=== PATIENT | male | born 1955 | race Caucasian/White ===

== ENCOUNTER 2019-02-01 14:25 | Emergency (ER) | payer OTHER ==
[2019-02-01 14:35] VITALS: BMI 31.2
--- NOTE | 2019-02-01 14:36 | PDOC ---
Rapid Medical Evaluation Time Seen by Provider: 02/01/19 14:30 Medical Evaluation: Allergies Allergy/AdvReac Type Severity Reaction Status Date / Time No Known Allergies Allergy Verified 09/05/14 18:03 02/01/19 14:31 Pt presents for difficulty walking for 9 days. Denies falling, recent travel, smoking history. Pt drinks approx. 7-8 drinks per day. Drank one beer today. Exam: R leg is with 4+ pitting edema. Orders: US, labs Pt to proceed to the ER for further evaluation Discharge Disposition - Diagnosis Leg swelling - Referrals - Patient Instructions - Post Discharge Activity
--- NOTE | 2019-02-01 15:16 | PDOC ---
History of Present Illness - General Chief Complaint: Edema Stated Complaint: LEG SWELLING Time Seen by Provider: 02/01/19 14:30 - History of Present Illness Initial Comments: 02/01/19 16:01 The patient is a 64 year old male with a history of HTN, DM, Alcohol abuse who presents for evaluation of right lower extremity pain and swelling. The patient reports a 9-10 day history of difficulty walking secondary to right lower extremity pain and worsening swelling prompting his presentation to the ED for further evaluation. The patient denies any history of DVT and otherwise denies any recent long travel, headache, fevers, chills, SOB, chest pain, nausea , vomiting, abdominal pain, or changes with urination or bowel movements. Past History - Past Medical History Allergies/Adverse Reactions: Allergies Allergy/AdvReac Type Severity Reaction Status Date / Time No Known Allergies Allergy Verified 02/01/19 14:34 Home Medications: Ambulatory Orders Atorvastatin Ca [Lipitor] 20 mg PO HS 07/26/14 Albuterol Sulfate Inhaler - [Ventolin HFA Inhaler -] 2 inh PO Q4H PRN #1 cartridge 09/09/14 Aspirin Coated [Ecotrin -] 81 mg PO DAILY #30 tablet.ec 09/09/14 Insulin (Novolog) [Novolog Flexpen -] 0 units SQ BIDAC pen 09/09/14 Losartan Potassium 50 mg PO DAILY #30 tablet 09/09/14 Thiamine HCl [Vitamin B1 -] 100 mg PO HS #30 tablet 09/09/14 metFORMIN HCL [Glucophage -] 500 mg PO BIDAC #60 tablet 09/09/14 Anemia: No Asthma: Yes Cancer: No Cardiac Disorders: No CVA: No COPD: No CHF: No Dementia: No Diabetes: Yes (metformin ) GI Disorders: No Disorders: No HTN: Yes (no meds reported) Hypercholesterolemia: No Kidney Stones: No Liver Disease: No Seizures: No (blackouts alcohol related last 1 month ago) Thyroid Disease: No - Surgical History Abdominal Surgery: Yes (umbilical hernia repair ) Appendectomy: No Cardiac Surgery: No Cholecystectomy: No Lung Surgery: No Neurologic Surgery: No Orthopedic Surgery: No - Reproductive History Testicular Surgery: No - Psycho Social/Smoking Cessation Hx Smoking History: Never smoked Have you smoked in the past 12 months: No Number of Cigarettes Smoked Daily: 20 Cigars Per Day: 0 Information on smoking cessation initiated: No 'Breaking Loose' booklet given: 09/05/14 Hx Alcohol Use: Yes (7 BEERS A DAY) Drug/Substance Use Hx: No Substance Use Type: Cocaine, Marijuana Hx Substance Use Treatment: Yes Review of Systems - Review of Systems Comments:: 02/01/19 16:03 Constitutional: No fevers, chills, fatigue, malaise HEENT: No Rhinorrhea, nasal congestion, visual changes Cardiovascular: No chest pain, syncope, palpitations, lightheadedness Respiratory: No Cough, SOB, Hemoptysis, Gastrointestinal: No Abdominal pain, Nausea, Vomiting, Constipation, Diarrhea, Melena Genitourinary: No Dysuria, Frequency, Urgency, Hesitancy, Hematuria, Flank pain Musculoskeletal: Right lower extremity pain and swelling. No Myalgia, arthralgia Skin: No rashes, itching, bruising, pallor Neurologic: No Headache, Dizziness, Numbness, Weakness, or Tingling Psychiatric: No Hallucinations. No SI or HI *Physical Exam - Vital Signs Last Vital Signs Temp Pulse Resp BP Pulse Ox 97.8 F 80 20 144/67 99 02/01/19 14:30 02/01/19 14:30 02/01/19 14:30 02/01/19 14:30 02/01/19 14:30 - Physical Exam 02/01/19 16:03 General Appearance: Nourished. No Apparent Distress HEENT: No Pharyngeal Erythema, Tonsillar Exudate, Tonsillar Erythema Neck: No Cervical Lymphadenopathy Respiratory/Chest: Lungs Clear, Normal Breath Sounds. No Crackles, Rales, Rhonchi, Wheezing Cardiovascular: Regular Rhythm, Regular Rate. No Murmur, Gallops, Rubs Gastrointestinal/Abdominal: Normal Bowel Sounds, Soft. No Guarding, Rebound, Tenderness Musculoskeletal: No CVA Tenderness Extremity: 4+ edema to the right lower extremity with tenderness to palpation. Normal Capillary Refill Integumentary: Normal Color, Dry, Warm Neurologic: Fully Oriented, Alert, Normal Mood/Affect, Normal Response, ED Treatment Course - LABORATORY CBC & Chemistry Diagram: 02/01/19 15:12 02/01/19 15:12 Medical Decision Making - Medical Decision Making 02/01/19 16:04 The patient is a 64 year old male with a history of HTN, DM, Alcohol abuse who presents for evaluation of right lower extremity pain and swelling. Given the patient's history and physical exam, we will obtain a cbc, cmp, coags, dvt US to evaluate further. We will continue to monitor and reassess while here in the ED. 02/01/19 17:02 CBC, cmp were unremarkable. DVT US demonstrated no evidence of DVT as read by our radiologist. We will treat with a dose of lasix here in the Ed. We are comfortable discharging the patient home in stable condition. Patient made aware of impression and plan, return precautions discussed including but not limited to worsening pain or symptoms, fevers, or signs of infection, chest pain , respiratory distress, inability to tolerate oral intake, dehydration, syncope , or neurologic changes. The patient is to follow up with PMD as recommended within 1 week, follow up information provided and the patient will call for an appointment. The patient is to take medications as instructed for duration of time and continue with supportive care, avoid triggers and precipitants. Patient is safe for outpatient follow-up. Discharge - Discharge Information Problems reviewed: Yes Clinical Impression/Diagnosis: Leg swelling Condition: Stable Disposition: HOME - Follow up/Referral Referrals: ON STAFF,NOT [Primary Care Provider] - - Patient Discharge Instructions Patient Printed Discharge Instructions: DI for Peripheral Edema, Unilateral Additional Instructions: 1) Please follow-up with your primary care doctor in the next 2-3 days. Please call tomorrow to schedule a follow up appointment. If you cannot follow up with your doctor within 1 week please return to the Emergency Department for any urgent issues. 2) Your laboratory / imaging results were normal here in the ER. 3) If you have any worsening of symptoms or any other concerns, please return to the ER immediately. Return if worsening symptoms including fevers, headache, vomiting, visual or hearing disturbances, abdominal pain, chest pain, shortness of breath, syncope, dehydration, inability to take things by mouth/vomiting, altered mental status, or worsening concerning symptoms. 4) Please continue taking your home medications as directed. Side effects may include upset stomach, abdominal pain, vomiting, or diarrhea. Do not drink alcohol with your medications. - Post Discharge Activity
[2019-02-01 15:55] LABS: BASO % 0.5 % (0-2.0); HEMATOCRIT 30.4 % (35.4-49); LYMPH % 17.5 % (8-40); MCH 27.8 pg (25.7-33.7); MCHC 32.9 g/dl (32.0-35.9); MEAN CELL VOLUME 84.3 fl (80-96); PLATELET COUNT 124 K/MM3 (134-434); RDW 15.4 % (11.9-15.9); WHITE BLOOD COUNT 4.8 K/mm3 (4.0-10.0)
[2019-02-01 16:19] LABS: INR 1.07 (0.83-1.09); PROTHROMBIN TIME (PATIENT) 12.6 SEC (9.7-13.0)
[2019-02-01 16:25] LABS: ALBUMIN 2.6 g/dl (3.4-5.0); BILIRUBIN,TOTAL 1.3 mg/dL (0.2-1); BLOOD UREA NITROGEN 10.5 mg/dL (7-18); CALCIUM 8.5 mg/dL (8.5-10.1); CREATININE 0.7 mg/dL (0.55-1.3); POTASSIUM 3.8 mmol/L (3.5-5.1); TOT PROT 8.7 g/dl (6.4-8.2)
--- NOTE | 2019-02-01 16:45 | PDOC ---
Documentation entered by Jess Mitchell SCRIBE, acting as scribe for Steven Marquez MD. Steven Marqeuz MD: This documentation has been prepared by the Stephen fontanez Xhesika, SCRIBE, under my direction and personally reviewed by me in its entirety. I confirm that the documentation accurately reflects all work, treatment, procedures, and medical decision making performed by me. Attending Attestation - Resident Resident Name: Addi Mcrae - ED Attending Attestation I have performed the following: I have examined & evaluated the patient, The case was reviewed & discussed with the resident, I agree w/resident's findings & plan, Exceptions are as noted - HPI HPI: 02/01/19 16:02 The patient is a 64 year old male with a significant PMH of DM, HTN, and ETOH/ cannabis/cocaine abuse who presents to the emergency department for 10 days of RLE swelling and pain associated with difficulty ambulating. The patient reports daily drinking (approx.7-8 drinks per day) and had one beer today. The patient denies trauma, warmth to the leg, fever/chills, chest pain, shortness of breath, headache and dizziness. Denies cough, nausea, vomiting, diarrhea and constipation. Denies dysuria, frequency, urgency and hematuria. Allergies: NKDA - Physicial Exam PE: 02/01/19 16:03 GENERAL: The patient is awake, alert, and fully oriented, Nontoxic - in no acute distress. NECK: Normal range of motion, supple without lymphadenopathy, JVD, or masses. LUNGS: Breath sounds equal, clear to auscultation bilaterally. No wheezes, no crackles, no rales. HEART: Regular rate and rhythm, normal S1 and S2 without murmur, rub or gallop. ABDOMEN: Soft, nontender, normoactive bowel sounds. No guarding, no rebound. No masses. EXTREMITIES: b/l 3+ pitting edema, R>L, mild anterior erythema without warmth, induration, tenderness to palpation, mildly tender on lateral aspect of calf. no focal bony tenderness. NEUROLOGICAL: No facial asymmetry, Normal speech, normal gait. PSYCH: Normal mood, normal affect. SKIN: Warm, Dry, normal turgor, no rashes or lesions noted. - Medical Decision Making 12/09/19 17:00 pt with chronic le gswelling, but worsened the past 10 days. no trauma/falls, fever/chills. pt notes he is homeless and is on his feet alot, when he has a chance to elevate his legs, the swelling does improve. pt noticed to be hypalbumin - likely from chronic etoh - enoucraged pt to eat more protiens will give pt a dose of laxis, but recommend elevation pt does have a PMD in the [facility] will have pt fu with them next week
[2019-02-01] MEDS ORDERED: FUROSEMIDE 40 MG/4 ML INJECTABLE VIAL IVPUSH ONE (16:57)
[2019-02-01 17:18] VITALS: BP 134/76; PULSE 78; TEMP 98
[2019-02-01] MEDS ORDERED: FUROSEMIDE 40 MG/4 ML INJECTABLE VIAL ONE (17:20)
[2019-02-01 17:34] LABS: PLATELET ESTIMATE SLT DECREASE
== END 2019-02-01 17:25 | disposition home or self-care (01) ==
LOC: JER 14:25
PROC: 3E033GC Introduction of Other Therapeutic Substance into Peripheral Vein, Percutaneous Approach (ICD-10-PCS; principal; 2019-02-01)
DX: R60.0 Localized edema (principal); I10 Essential (primary) hypertension; E11.9 Type 2 diabetes mellitus without complications; Z79.84 Long term (current) use of oral hypoglycemic drugs; F10.10 Alcohol abuse, uncomplicated
CPT/HCPCS: 36415; 80053; 85025; 85610; 93971-TC; 96374; 99282-25

== ENCOUNTER 2019-02-01 18:44 | Inpatient (IN) | payer OTHER ==
[2019-02-01 19:22] VITALS: BMI 26.7
--- NOTE | 2019-02-01 21:31 | HP ---
CIWA Score Nausea/Vomitin Muscle Tremors: 2 Anxiety: 2 Agitation: 0-Normal Activity Paroxysmal Sweats: 1-Minimal Palms Moist Orientation: 2-Disoriented Date<2 days Tacttile Disturbances: 0-None Auditory Disturbances: 0-None Visual Disturbances: 2-Mild Sensitivity Headache: 3-Moderate CIWA-Ar Total Score: 14 - Admission Criteria OASAS Guidelines: Admission for Medically Managed Detox: Requires at least one of the followin. CIWA greater than 12 2. Seizures within the past 24 hours 3. Delirium tremens within the past 24 hours 4. Hallucinations within the past 24 hours 5. Acute intervention needed for co occurring medical disorder 6. Acute intervention needed for co occurring psychiatric disorder 7. Severe withdrawal that cannot be handled at a lower level of care (continued vomiting, continued diarrhea, abnormal vital signs) requiring intravenous medication and/or fluids 8. Admitting History and Physical - Smoking History Smoking history: Never smoked Have you smoked in the past 12 months: No Aproximately how many cigarettes per day: 20 - Alcohol/Substance Use Hx Alcohol Use: Yes (7 BEERS A DAY) Admission ROS [facility] Allergies/Adverse Reactions: Allergies Allergy/AdvReac Type Severity Reaction Status Date / Time No Known Allergies Allergy Verified 02/01/19 19:01 History of Present Illness: pt here requesting detox from etoh use , reports 1 case beer and sometime 1/ 5 l liquor , latest use this morning , reports tremors if not drinking , denies blackouts, + falls while intoxicated, most recently 5 mo ago fell in the street , slip and fall on wet leaves w/ [facility] denies frx , has had leg swelling RIGHT since . went to ED [facility] today for R LE swelling , No DVT per d/c paperwork , BW done . Denies seizures . first age of use 17 cocaine - 100 $ /day via inhalation x 8 years heroin : 1 bundle every weekend . tobacco - denies cannabis - occasional PMHX : DM , HTN PSHX : r eye injury w/ blindness , umbilical hernia PSych : denies Exam Limitations: Clinical Condition - Ebola screening Have you traveled outside of the country in the last 21 days: No Have you had contact with anyone from an Ebola affected area: No - Review of Systems Constitutional: Loss of Appetite EENT: reports: Other (R eye blind) Respiratory: reports: SOB with Exertion (intermittent) Cardiac: reports: Chest Tightness (intermittent) GI: reports: Constipated, Poor Appetite : reports: Other (hesitancy) Musculoskeletal: reports: Back Pain (chronic) Patient History - Patient Medical History Hx Anemia: No Hx Asthma: Yes Hx Chronic Obstructive Pulmonary Disease (COPD): No Hx Cancer: No Hx Cardiac Disorders: No Hx Congestive Heart Failure: No Hx Hypertension: Yes (no meds reported) Hx Hypercholesterolemia: No Hx Pacemaker: No HX Cerebrovascular Accident: No Hx Seizures: No (blackouts alcohol related last 1 month ago) Hx Dementia: No Hx Diabetes: Yes (metformin ) Hx Gastrointestinal Disorders: No Hx Liver Disease: No Hx Genitourinary Disorders: No Hx Sexually Transmitted Disorders: No Hx Renal Disease (ESRD): No Hx Thyroid Disease: No Hx Human Immunodeficiency Virus (HIV): No (negative 8 m ago ) Hx Hepatitis C: Yes Hx Depression: Yes (not medciated ) Hx Suicide Attempt: No Hx Bipolar Disorder: No Hx Schizophrenia: No - Patient Surgical History Past Surgical History: Yes Hx Neurologic Surgery: No Hx Cataract Extraction: No Hx Cardiac Surgery: No Hx Lung Surgery: No Hx Breast Surgery: No Hx Breast Biopsy: No Hx Abdominal Surgery: Yes (umbilical hernia repair ) Hx Appendectomy: No Hx Cholecystectomy: No Hx Genitourinary Surgery: No Hx Section: No Hx Orthopedic Surgery: No Hx Hysterectomy: No Other Surgical History: rt eye surgery while in [facility] ? cause / low back pain hx Anesthesia Reaction: No - PPD History Date: 07/27/14 - Smoking Cessation Smoking history: Never smoked Have you smoked in the past 12 months: No Aproximately how many cigarettes per day: 20 Cigars Per Day: 0 Hx Chewing Tobacco Use: No - Substances abused Alcohol Substance route: Oral Frequency: Daily Amount used: 15 12OZ CANS OF BEERS Age of first use: 11 Date of last use: 02/01/19 Heroin Substance route: Inhalation Frequency: Daily Amount used: 10 BAGS Age of first use: 17 Date of last use: 01/23/19 Cocaine Substance route: Inhalation Frequency: Daily Amount used: $100 Age of first use: 18 Date of last use: 01/30/19 Marijuana/Hashish Substance route: Smoking Frequency: Daily Amount used: $25 Age of first use: 13 Date of last use: 12/02/19 Admission Physical Exam BHS - Vital Signs Vital Signs: Vital Signs - 24 hr 02/01/19 02/01/19 18:58 19:21 Temperature 98.2 F 98.2 F Pulse Rate 92 H 92 H Respiratory 18 18 Rate Blood Pressure 146/79 146/79 Breathalyzer - Breathalyzer Breathalyzer: 0 Urine Drug Screen - Test Device Lot number: [id number] Expiration date: 09/23/20 - Control Is test valid?: Yes - Results Drug screen NEGATIVE: No Urine drug screen results: CLAUDIA-Cocaine
--- NOTE | 2019-02-01 21:43 | HP ---
CIWA Score Nausea/Vomitin-Mild Nausea/No Vomiting Muscle Tremors: 1-None Visible, but [place] Anxiety: 2 Agitation: 0-Normal Activity Paroxysmal Sweats: 1-Minimal Palms Moist Orientation: 2-Disoriented Date<2 days Tacttile Disturbances: 0-None Auditory Disturbances: 0-None Visual Disturbances: 2-Mild Sensitivity Headache: 3-Moderate CIWA-Ar Total Score: 12 - Admission Criteria OASAS Guidelines: Admission for Medically Managed Detox: Requires at least one of the followin. CIWA greater than 12 2. Seizures within the past 24 hours 3. Delirium tremens within the past 24 hours 4. Hallucinations within the past 24 hours 5. Acute intervention needed for co occurring medical disorder 6. Acute intervention needed for co occurring psychiatric disorder 7. Severe withdrawal that cannot be handled at a lower level of care (continued vomiting, continued diarrhea, abnormal vital signs) requiring intravenous medication and/or fluids 8. Admitting History and Physical - Smoking History Smoking history: Never smoked Have you smoked in the past 12 months: No Aproximately how many cigarettes per day: 20 Admission ROS [facility] - HPI Allergies/Adverse Reactions: Allergies Allergy/AdvReac Type Severity Reaction Status Date / Time No Known Allergies Allergy Verified 02/01/19 19:01 History of Present Illness: pt here requesting detox from etoh use , reports 1 case and sometimes 1/2 liter liquor , reports tremors if not drinking , denies blackouts or seizures , latest use this morning . pt was in ED @ [facility] today for c/o R LE swelling , per d/c paperwork no DVT . cocaine : 100 $ /day heroin : weeneds only , claims 1 bundle cannabis ; occasional tobacco - denies . PMHX : DM ,HTN PSHX : r eye injury , unmbilical hernia Exam Limitations: Clinical Condition - Ebola screening Have you traveled outside of the country in the last 21 days: No Have you had contact with anyone from an Ebola affected area: No - Review of Systems Constitutional: Loss of Appetite EENT: reports: See HPI Respiratory: reports: SOB with Exertion Cardiac: reports: Chest Tightness (at times) GI: reports: Constipated, Poor Appetite : reports: Other (hesitancy) Musculoskeletal: reports: Back Pain (chronic) Integumentary: reports: No Symptoms Reported Neuro: reports: See HPI, Headache Endocrine: reports: See HPI Psychiatric: reports: Orientated x3, Anxious Patient History - Patient Medical History Hx Anemia: No Hx Asthma: Yes Hx Chronic Obstructive Pulmonary Disease (COPD): No Hx Cancer: No Hx Cardiac Disorders: No Hx Congestive Heart Failure: No Hx Hypertension: Yes (no meds reported) Hx Hypercholesterolemia: No Hx Pacemaker: No HX Cerebrovascular Accident: No Hx Seizures: No (blackouts alcohol related last 1 month ago) Hx Dementia: No Hx Diabetes: Yes (metformin ) Hx Gastrointestinal Disorders: No Hx Liver Disease: No Hx Genitourinary Disorders: No Hx Sexually Transmitted Disorders: No Hx Renal Disease (ESRD): No Hx Thyroid Disease: No Hx Human Immunodeficiency Virus (HIV): No (negative 8 m ago ) Hx Hepatitis C: Yes Hx Depression: Yes (not medciated ) Hx Suicide Attempt: No Hx Bipolar Disorder: No Hx Schizophrenia: No - Patient Surgical History Past Surgical History: Yes Hx Neurologic Surgery: No Hx Cataract Extraction: No Hx Cardiac Surgery: No Hx Lung Surgery: No Hx Breast Surgery: No Hx Breast Biopsy: No Hx Abdominal Surgery: Yes (umbilical hernia repair ) Hx Appendectomy: No Hx Cholecystectomy: No Hx Genitourinary Surgery: No Hx Section: No Hx Orthopedic Surgery: No Hx Hysterectomy: No Other Surgical History: [facility] in [facility] ? cause / low back pain hx Anesthesia Reaction: No - PPD History Date: 07/27/14 - Smoking Cessation Smoking history: Never smoked Have you smoked in the past 12 months: No Aproximately how many cigarettes per day: 20 Cigars Per Day: 0 Hx Chewing Tobacco Use: No - Substances abused Alcohol Substance route: Oral Frequency: Daily Amount used: 15 12OZ CANS OF BEERS Age of first use: 11 Date of last use: 02/01/19 Heroin Substance route: Inhalation Frequency: 1-2 times per week Amount used: 10 BAGS Age of first use: 17 Date of last use: 01/23/19 Cocaine Substance route: Inhalation Frequency: Daily Amount used: $100 Age of first use: 18 Date of last use: 01/30/19 Marijuana/Hashish Substance route: Smoking Frequency: 1-3 times last 30 days Amount used: $25 Age of first use: 13 Date of last use: 01/25/19 Admission Physical Exam BHS - Vital Signs Vital Signs: Vital Signs - 24 hr 02/01/19 02/01/19 18:58 19:21 Temperature 98.2 F 98.2 F Pulse Rate 92 H 92 H Respiratory 18 18 Rate Blood Pressure 146/79 146/79 - Physical General Appearance: Yes: Mild Distress, Anxious HEENTM: Yes: Hearing grossly Normal, Normocephalic, Normal Voice, Nasal Congestion, Rhinorrhea, Other (R Eye blind) Respiratory: Yes: Chest Non-Tender, Lungs Clear, No Respiratory Distress, No Accessory Muscle Use Neck: Yes: No masses,lesions,Nodules, Trachea in good position Cardiology: Yes: Regular Rhythm, Regular Rate, S1, S2, Tachycardia Abdominal: Yes: Soft, Tenderness (LUQ w/ deep palpation , no guarding, no rebound) Back: Yes: Normal Inspection Musculoskeletal: Yes: Gait Steady Extremities: Yes: Normal Inspection, Tremors, Swelling (R LE pitting , w erythema to knee) Integumentary: Yes: Warm, Petechiae (right inner thigh) - Diagnostic (1) Alcohol dependence Current Visit: Yes Status: Chronic Qualifiers: Substance use status: in withdrawal (2) Cocaine dependence Current Visit: Yes Status: Chronic Breathalyzer - Breathalyzer Breathalyzer: 0 Urine Drug Screen - Test Device Lot number: [id number] Expiration date: 09/23/20 - Control Is test valid?: Yes - Results Drug screen NEGATIVE: No Urine drug screen results: CLAUDIA-Cocaine Inpatient Rehab Admission - Rehab Decision to Admit Inpatient rehab admission?: No
[2019-02-01] MEDS ORDERED: MAGNESIUM HYDROX 2400MG/30ML ORAL SUSPENSION 30 ML CUP PO PRN (21:53)
[2019-02-01] MEDS ORDERED: MAGNESIUM CITRATE 300 ML BOTTLE PO PRN (21:53)
[2019-02-01] MEDS ORDERED: IBUPROFEN 400 MG TABLET (FP) PO PRN (21:53)
[2019-02-01] MEDS ORDERED: BISMUTH SUBSALICYLATE 524 MG/30 ML UD PO PRN (21:53)
[2019-02-01] MEDS ORDERED: MENTHOL/PHENOL 1 EACH UD MM PRN (21:53)
[2019-02-01] MEDS ORDERED: hydrOXYzine PAMOATE 25 MG CAPSULE (FP) PO PRN (21:53)
[2019-02-01] MEDS ORDERED: MAG HYDROX/AL HYDROX/SIMETH 30 ML UNIT-DOSE CUP PO PRN (21:53)
[2019-02-01] MEDS ORDERED: P-EPHED 60MG/TRIPROLIDI 2.5MG TABLET PO PRN (21:53)
[2019-02-01] MEDS ORDERED: ACETAMINOPHEN 325 MG TABLET (FP) PO PRN (21:53)
[2019-02-01] MEDS ORDERED: diazePAM 5 MG TABLET PO PRN (21:55)
[2019-02-01] MEDS ORDERED: METOPROLOL TARTRATE 25 MG TABLET (FP) PO ONE (21:55)
[2019-02-01] MEDS ORDERED: ALBUTEROL SO4 0.083% IH SOL 2.5 MG/3 ML VIAL.NEB. NEB PRN (21:55)
[2019-02-01] MEDS: THIAMINE HCL 100 MG TABLET (FP) PO SCH (23:14)
[2019-02-01] MEDS: ASPIRIN COATED 81 MG TABLET.EC PO SCH (23:14)
[2019-02-01] MEDS: ATORVASTATIN CA 20 MG TABLET (FP) PO SCH (23:14)
[2019-02-01] MEDS: diazePAM 5 MG TABLET PO SCH (23:14)
[2019-02-02] MEDS: diazePAM 5 MG TABLET PO SCH ×3 (05:59→22:21)
[2019-02-02] MEDS: metFORMIN HCL 500 MG TABLET (FP) PO SCH ×2 (06:00→16:44)
[2019-02-02] MEDS: INSULIN SLIDING SCALE (NOVOLOG) 1 VIAL SQ SCH ×2 (06:02→16:46)
--- NOTE | 2019-02-02 09:08 | EKG ---
Test Reason : Blood Pressure : / mmHG Vent. Rate : 089 BPM Atrial Rate : 089 BPM P-R Int : 120 ms QRS Dur : 100 ms QT Int : 416 ms P-R-T Axes : 040 001 039 degrees QTc Int : 506 ms NORMAL SINUS RHYTHM PROLONGED QT ABNORMAL ECG NO PREVIOUS ECGS AVAILABLE Confirmed by Mike Jose MD ([id number]) on 02/02/2019 9:07:47 AM Referred By: Confirmed By:Mike Jose MD
--- NOTE | 2019-02-02 09:33 | PN ---
S CIWA - CIWA Score Nausea/Vomitin-Mild Nausea/No Vomiting Muscle Tremors: 3 Anxiety: 3 Agitation: 2 Paroxysmal Sweats: 2 Orientation: 0-Oriented Tacttile Disturbances: 1-Very Mild Itch/Numbness (right leg) Auditory Disturbances: 0-None Visual Disturbances: 0-None Headache: 1-Very Mild CIWA-Ar Total Score: 13 BHS Progress Note (SOAP) Subjective: 64 years old male admitted on 02/01/19 for alcohol withdrawal sx management treated with valium detox regimen long history of diabetes hypertension hypercholesterolemia health teaching on dietary and medication compliance right leg edematous "better in the morning" right leg skin cool to touch 1/10 pain with +4 swelling calf mild tender and erythema noted Objective: 02/02/19 09:33 Vital Signs Temperature 98.2 F 02/02/19 09:29 Pulse Rate 79 02/02/19 09:29 Respiratory Rate 18 02/02/19 09:29 Blood Pressure 98/58 L 02/02/19 09:29 O2 Sat by Pulse Oximetry (%) Laboratory Last Values POC Glucometer 160 UNITS (80-120) 02/02/19 06:00 02/02/19 09:37 lab see 02/01/19 ER report Assessment: 02/02/19 09:38 alcohol withdrawal strong recommend the patient return to his primary care provider for possible right leg dvt diagnostic testing Plan: valium detox regimen elevation of the right leg
[2019-02-02] MEDS: ASPIRIN COATED 81 MG TABLET.EC PO SCH (10:20)
[2019-02-02] MEDS: LOSARTAN POTASSIUM 50 MG TABLET (FP) PO SCH (10:20)
[2019-02-02] MEDS: PRENATAL VITAMINS W/ FOLIC ACID TABLET (FP) PO SCH (10:21)
[2019-02-02] MEDS: ACETAMINOPHEN 325 MG TABLET (FP) PO PRN (12:37)
[2019-02-02] MEDS: MINERAL OIL/PETROLAT/WATER TOPICAL CREAM 113 GM JAR TP SCH ×2 (13:16→22:21)
[2019-02-02] MEDS: ATORVASTATIN CA 20 MG TABLET (FP) PO SCH (22:21)
[2019-02-02] MEDS: THIAMINE HCL 100 MG TABLET (FP) PO SCH (22:21)
[2019-02-02] MEDS: MELATONIN 5 MG TABLETS PO PRN (22:22)
[2019-02-03] MEDS: diazePAM 5 MG TABLET PO SCH ×2 (05:36→17:55)
[2019-02-03] MEDS: MINERAL OIL/PETROLAT/WATER TOPICAL CREAM 113 GM JAR TP SCH ×3 (05:36→22:15)
[2019-02-03] MEDS: metFORMIN HCL 500 MG TABLET (FP) PO SCH ×2 (06:20→17:55)
[2019-02-03] MEDS: INSULIN SLIDING SCALE (NOVOLOG) 1 VIAL SQ SCH ×2 (07:05→16:46)
--- NOTE | 2019-02-03 09:37 | PN ---
S CIWA - CIWA Score Nausea/Vomitin-Mild Nausea/No Vomiting Muscle Tremors: 2 Anxiety: 2 Agitation: 1-Slight > Activity Paroxysmal Sweats: 1-Minimal Palms Moist Orientation: 0-Oriented Tacttile Disturbances: 0-None Auditory Disturbances: 0-None Visual Disturbances: 0-None Headache: 1-Very Mild CIWA-Ar Total Score: 8 BHS Progress Note (SOAP) Subjective: 64 years old male admitted on 02/01/19 for alcohol withdrawal sx management treated with valium detox regimen feeling better today less tremor discuss aftercare with staff Objective: 02/03/19 09:36 Vital Signs Temperature 96.2 F L 02/03/19 09:19 Pulse Rate 83 02/03/19 09:19 Respiratory Rate 18 02/03/19 09:19 Blood Pressure 109/65 02/03/19 09:19 O2 Sat by Pulse Oximetry (%) Laboratory Last Values POC Glucometer 119 UNITS (80-120) 02/03/19 05:38 02/03/19 09:36 lab see 02/01/19 ER report Assessment: 02/03/19 09:37 alcohol withdrawal Plan: valium regimen
[2019-02-03] MEDS: ASPIRIN COATED 81 MG TABLET.EC PO SCH (10:16)
[2019-02-03] MEDS: LOSARTAN POTASSIUM 50 MG TABLET (FP) PO SCH (10:16)
[2019-02-03] MEDS: PRENATAL VITAMINS W/ FOLIC ACID TABLET (FP) PO SCH (10:16)
[2019-02-03] MEDS: ACETAMINOPHEN 325 MG TABLET (FP) PO PRN (10:17)
--- NOTE | 2019-02-03 11:52 | EKG ---
Test Reason : Blood Pressure : / mmHG Vent. Rate : 081 BPM Atrial Rate : 081 BPM P-R Int : 142 ms QRS Dur : 100 ms QT Int : 422 ms P-R-T Axes : 051 -13 016 degrees QTc Int : 490 ms NORMAL SINUS RHYTHM PROLONGED QT ABNORMAL ECG WHEN COMPARED WITH ECG OF 02-FEB-2019 06:30, NO SIGNIFICANT CHANGE WAS FOUND Confirmed by NATHAN KRUEGER MD ([id number]) on 02/03/2019 11:51:39 AM Referred By: Confirmed By:NATHAN KRUEGER MD
[2019-02-03 12:25] LABS: RPR REACTIVE 1:1 (NONREACTIVE)
[2019-02-03] MEDS ORDERED: PENICILLIN G BENZATHINE 2,400,000 UNIT/4 ML PFS IM ONE (14:00)
[2019-02-03 14:49] LABS: TREPONEMA ANTIBODY NON REACTIVE (NONREACTIVE)
[2019-02-03] MEDS: THIAMINE HCL 100 MG TABLET (FP) PO SCH (22:13)
[2019-02-03] MEDS: MELATONIN 5 MG TABLETS PO PRN (22:14)
[2019-02-03] MEDS: ATORVASTATIN CA 20 MG TABLET (FP) PO SCH (22:14)
[2019-02-04] MEDS: MINERAL OIL/PETROLAT/WATER TOPICAL CREAM 113 GM JAR TP SCH (05:24)
[2019-02-04] MEDS ORDERED: diazePAM 5 MG TABLET PO ONE (06:00)
[2019-02-04] MEDS: metFORMIN HCL 500 MG TABLET (FP) PO SCH (07:21)
[2019-02-04] MEDS: INSULIN SLIDING SCALE (NOVOLOG) 1 VIAL SQ SCH (07:22)
[2019-02-04 09:37] VITALS: BP 138/74; PULSE 93; TEMP 97.5
[2019-02-04] MEDS: PRENATAL VITAMINS W/ FOLIC ACID TABLET (FP) PO SCH (10:14)
[2019-02-04] MEDS: ASPIRIN COATED 81 MG TABLET.EC PO SCH (10:14)
[2019-02-04] MEDS: LOSARTAN POTASSIUM 50 MG TABLET (FP) PO SCH (10:14)
--- NOTE | 2019-02-04 12:40 | DS ---
[facility] Detox Discharge Summary Admission Date: 02/01/19 Discharge Date: 02/04/19 - History Present History: Alcohol Dependence Additional Comments: 64 years old male admitted on 02/01/19 for alcohol withdrawal sx management treated with valium detox regimen patient tolerated well alert oriented x 3 cardiac s1s2 regular rate rhythm respiratory clear lung bilaterally on auscultation right leg edematous +1 ambulating steady gait denies pain on weight bearing skin warm and dry - Physical Exam Results Vital Signs: Vital Signs Temperature 97.5 F L 02/04/19 09:36 Pulse Rate 93 H 02/04/19 09:36 Respiratory Rate 18 02/04/19 09:36 Blood Pressure 138/74 02/04/19 09:36 O2 Sat by Pulse Oximetry (%) Pertinent Admission Physical Exam Findings: alcohol withdrawal sx Laboratory Last Values POC Glucometer 129 UNITS (80-120) 02/04/19 05:27 RPR Titer Reactive 1:1 (NONREACTIVE) H 02/02/19 07:50 T.pallidum Ab (MHA) Non reactive (NONREACTIVE) 02/02/19 07:50 lab see 02/01/19 ER report - Treatment Hospital Course: Detox Protocol Followed, Detoxed Safely, Responded well, Discharged Condition Good, Rehab Referral Accepted Patient has Accepted a Rehab Referral to: community support approach - Medication Discharge Medications: Ambulatory Orders Atorvastatin Ca [Lipitor] 20 mg PO HS 07/26/14 Albuterol Sulfate Inhaler - [Ventolin HFA Inhaler -] 2 inh PO Q4H PRN #1 cartridge 09/09/14 Aspirin Coated [Ecotrin -] 81 mg PO DAILY #30 tablet.ec 09/09/14 Thiamine HCl [Vitamin B1 -] 100 mg PO HS #30 tablet 09/09/14 metFORMIN HCL [Glucophage -] 500 mg PO BIDAC #60 tablet 09/09/14 Acetaminophen 750 mg PO Q8H PRN 02/01/19 Doxycycline Hyclate 100 mg PO BID 02/01/19 Folic Acid 1 mg PO DAILY 02/01/19 Multivitamin [One-Daily Multi-Vitamin] 1 each PO DAILY 02/01/19 Naproxen 500 mg PO BID PRN 02/01/19 Tamsulosin HCl 0.4 mg PO DAILY 02/01/19 - Diagnosis (1) Syphilis contact, treated Status: Chronic (2) Alcohol dependence Status: Acute Qualifiers: Substance use status: uncomplicated Qualified Code(s): F10.20 - Alcohol dependence, uncomplicated (3) Asthma Status: Chronic Qualifiers: Asthma severity: mild Asthma persistence: intermittent Asthma complication type: with status asthmaticus Qualified Code(s): J45.22 - Mild intermittent asthma with status asthmaticus (4) Blind right eye Status: Chronic Qualifiers: Left eye visual impairment category: left - unspecified impairment Qualified Code(s): H54.40 - Blindness, one eye, unspecified eye (5) Diabetes mellitus Status: Chronic Qualifiers: Diabetes mellitus type: type 2 Diabetes mellitus complication status: with other specified complication (6) Hepatitis C Status: Chronic Qualifiers: Viral hepatitis chronicity: carrier Qualified Code(s): B18.2 - Chronic viral hepatitis C (7) Hypertension Status: Chronic Qualifiers: Hypertension type: essential hypertension Qualified Code(s): I10 - Essential (primary) hypertension - AMA Did Patient Leave Against Medical Advice: No CIWA Score - CIWA Score Nausea/Vomitin-No Nausea/No Vomiting Muscle Tremors: 2 Anxiety: 1-Mildly Anxious Agitation: 1-Slight > Activity Paroxysmal Sweats: No Perspiration Orientation: 0-Oriented Tacttile Disturbances: 0-None Auditory Disturbances: 0-None Visual Disturbances: 0-None Headache: 0-None Present CIWA-Ar Total Score: 4
== END 2019-02-04 10:20 | disposition home or self-care (01) | DRG 773 ==
LOC: YASAS 18:44 → Y3N 22:22
PROVIDERS: ADMIT Allergy & Immunology; ATTEND Allergy & Immunology
PROC: HZ2ZZZZ Detoxification Services for Substance Abuse Treatment (ICD-10-PCS; principal; 2019-02-01)
DX: F10.230 Alcohol dependence with withdrawal, uncomplicated (principal); F11.10 Opioid abuse, uncomplicated; F14.20 Cocaine dependence, uncomplicated; F12.10 Cannabis abuse, uncomplicated; F32.9 Major depressive disorder, single episode, unspecified; I10 Essential (primary) hypertension; J45.22 Mild intermittent asthma with status asthmaticus; E11.9 Type 2 diabetes mellitus without complications; Z79.84 Long term (current) use of oral hypoglycemic drugs; H54.61 Unqualified visual loss, right eye, normal vision left eye; R60.0 Localized edema; B18.2 Chronic viral hepatitis C; Z20.2 Contact with and (suspected) exposure to infections with a predominantly sexual mode of transmission
CPT/HCPCS: 36415; 82962; 86593; 86780; 93005; 93010

== ENCOUNTER 2019-04-19 20:54 | Inpatient (IN) | payer OTHER ==
--- NOTE | 2019-04-20 01:04 | BHS.RME ---
Substance Use & Tx History - Last Treatment Where was last treatment: Detox CIWA Nausea/Vomitin-Mild Nausea/No Vomiting Muscle Tremors: 3 Anxiety: 3 Agitation: 3 Paroxysmal Sweats: 2 Orientation: 2-Disoriented Date<2 days Tacttile Disturbances: 0-None Auditory Disturbances: 0-None Visual Disturbances: 0-None Headache: 0-None Present CIWA-Ar Total Score: 14
--- NOTE | 2019-04-20 01:06 | HP ---
CIWA Score Nausea/Vomitin-Mild Nausea/No Vomiting Muscle Tremors: 3 Anxiety: 3 Agitation: 3 Paroxysmal Sweats: 2 Orientation: 2-Disoriented Date<2 days Tacttile Disturbances: 0-None Auditory Disturbances: 0-None Visual Disturbances: 0-None Headache: 0-None Present CIWA-Ar Total Score: 14 - Admission Criteria OASAS Guidelines: Admission for Medically Managed Detox: Requires at least one of the followin. CIWA greater than 12 2. Seizures within the past 24 hours 3. Delirium tremens within the past 24 hours 4. Hallucinations within the past 24 hours 5. Acute intervention needed for co occurring medical disorder 6. Acute intervention needed for co occurring psychiatric disorder 7. Severe withdrawal that cannot be handled at a lower level of care (continued vomiting, continued diarrhea, abnormal vital signs) requiring intravenous medication and/or fluids 8. Admitting History and Physical - Smoking History Smoking history: Never smoked Have you smoked in the past 12 months: No Aproximately how many cigarettes per day: 20 - Alcohol/Substance Use Hx Alcohol Use: Yes (7 BEERS A DAY) Admission [facility] Chief Complaint: Alcohol withdrawal symptoms Allergies/Adverse Reactions: Allergies Allergy/AdvReac Type Severity Reaction Status Date / Time No Known Allergies Allergy Verified 04/19/19 22:42 History of Present Illness: 64 years old male with a lo9ng history of alcohol dependence is seeking admission to detox. Patient has been to multiple detox and reports insignificant period of sobriety. His last admission to [facility] was for the period 02/01/2019- 2018 and he reports that he relapsed immediately he was discharged. He hs medical [id number] of DM type 2, hypertension, hyperlipidemia, Hep. C, asthma, right eye blindness and bilateral lower extremity swelling. He denies suicide attempt and suicidal ideation at this time. Exam Limitations: No Limitations - Ebola screening Have you traveled outside of the country in the last 21 days: No Have you had contact with anyone from an Ebola affected area: No Do you have a fever: No - Review of Systems Constitutional: No Symptoms Reported, Changes in sleep EENT: reports: No Symptoms Reported, Nose Congestion Respiratory: reports: No Symptoms reported Cardiac: reports: No Symptoms Reported GI: reports: Nausea, Poor Appetite, Poor Fluid Intake, Abdominal cramping : reports: No Symptoms Reported Musculoskeletal: reports: Back Pain, Muscle Pain, Neck Pain Integumentary: reports: Dryness, Flushing Neuro: reports: Tremors Endocrine: reports: No Symptoms Reported Hematology: reports: No Symptoms Reported Psychiatric: reports: No Sypmtoms Reported, Mood/Affect Appropiate, Orientated x3, Anxious, Depressed Other Systems: Reviewed and Negative Patient History - Patient Medical History Hx Anemia: No Hx Asthma: Yes Hx Chronic Obstructive Pulmonary Disease (COPD): No Hx Cancer: No Hx Cardiac Disorders: No Hx Congestive Heart Failure: No Hx Hypertension: Yes (Not on medication) Hx Hypercholesterolemia: Yes (Not on medication) Hx Pacemaker: No HX Cerebrovascular Accident: No Hx Seizures: No (blackouts alcohol related last 1 month ago) Hx Dementia: No Hx Diabetes: Yes (metformin ) Hx Gastrointestinal Disorders: No Hx Liver Disease: No Hx Genitourinary Disorders: No Hx Sexually Transmitted Disorders: No Hx Renal Disease (ESRD): No Hx Thyroid Disease: No Hx Human Immunodeficiency Virus (HIV): No (Negative 2019) Hx Hepatitis C: Yes Hx Depression: Yes (Not on medication) Hx Suicide Attempt: No (Denies suicidal ideation at ths time) Hx Bipolar Disorder: No Hx Schizophrenia: No - Patient Surgical History Past Surgical History: Yes Hx Neurologic Surgery: No Hx Cataract Extraction: No Hx Cardiac Surgery: No Hx Lung Surgery: No Hx Breast Surgery: No Hx Breast Biopsy: No Hx Abdominal Surgery: Yes (umbilical hernia repair ) Hx Appendectomy: No Hx Cholecystectomy: No Hx Genitourinary Surgery: No Hx Section: No Hx Orthopedic Surgery: No Hx Hysterectomy: No Other Surgical History: rt eye surgery while in longterm ? cause / low back pain hx Anesthesia Reaction: No - PPD History Previous Implant?: Yes Documented Results: Negative w/proof Implanted On Prior [facility] Admission?: Yes Date: 02/03/19 PPD to be Administered?: No - Reproductive History Patient is a Female of Child Bearing Age (11 -55 yrs old): No (male) - Smoking Cessation Smoking history: Never smoked Have you smoked in the past 12 months: No Aproximately how many cigarettes per day: 20 Cigars Per Day: 0 Hx Chewing Tobacco Use: No Initiated information on smoking cessation: No - Substance & Tx. History Hx Alcohol Use: Yes Substance Use Type: Alcohol, Cocaine Hx Substance Use Treatment: Yes Admission Physical Exam S - Vital Signs Vital Signs: Vital Signs - 24 hr 04/20/19 04/20/19 00:45 00:51 Temperature 97.6 F Pulse Rate 93 H Respiratory 18 18 Rate Blood Pressure 135/63 - Physical General Appearance: Yes: Moderate Distress, Tremorous, Anxious HEENTM: Yes: Within Normal Limits Respiratory: Yes: Lungs Clear, Normal Breath Sounds, No Respiratory Distress Neck: Yes: Within Normal Limits Breast: Yes: Breast Exam Deferred Cardiology: Yes: Tachycardia Abdominal: Yes: Normal Bowel Sounds, Soft Genitourinary: Yes: Within Normal Limits Back: Yes: Normal Inspection Musculoskeletal: Yes: Back pain Extremities: Yes: Tremors Neurological: Yes: Within Normal Limits Integumentary: Yes: Warm Lymphatic: Yes: Within Normal Limits - Diagnostic (1) Leg swelling Current Visit: No Status: Acute (2) Asthma Current Visit: No Status: Chronic Qualifiers: Asthma severity: mild Asthma persistence: intermittent Asthma complication type: with status asthmaticus Qualified Code(s): J45.22 - Mild intermittent asthma with status asthmaticus (3) Blind right eye Current Visit: No Status: Chronic Qualifiers: Left eye visual impairment category: left - unspecified impairment Qualified Code(s): H54.40 - Blindness, one eye, unspecified eye (4) Cocaine dependence Current Visit: No Status: Chronic (5) Diabetes mellitus Current Visit: No Status: Chronic Qualifiers: Diabetes mellitus type: type 2 Diabetes mellitus complication status: with other specified complication (6) Hepatitis C Current Visit: No Status: Chronic Qualifiers: Viral hepatitis chronicity: carrier Qualified Code(s): B18.2 - Chronic viral hepatitis C (7) Hypertension Current Visit: No Status: Chronic Qualifiers: Hypertension type: essential hypertension Qualified Code(s): I10 - Essential (primary) hypertension Cleared for Admission S - Detox or Rehab [facility] Level of Care: Medically Managed Detox Regimen/Protocol: Librium Claeared for Rehab Admission: No Breathalyzer - Breathalyzer Breathalyzer: 0.091 Urine Drug Screen - Test Device Lot number: [id number] Expiration date: 01/23/21 - Control Is test valid?: Yes - Results Drug screen NEGATIVE: No Urine drug screen results: CLAUDIA-Cocaine Inpatient Rehab Admission - Rehab Decision to Admit Inpatient rehab admission?: No
[2019-04-20] MEDS ORDERED: MAG HYDROX/AL HYDROX/SIMETH 30 ML UNIT-DOSE CUP PO PRN (01:27)
[2019-04-20] MEDS ORDERED: METHOCARBAMOL 500 MG TABLET PO PRN (01:27)
[2019-04-20] MEDS ORDERED: hydrOXYzine PAMOATE 25 MG CAPSULE (FP) PO PRN (01:27)
[2019-04-20] MEDS ORDERED: IBUPROFEN 400 MG TABLET (FP) PO PRN (01:27)
[2019-04-20] MEDS ORDERED: MELATONIN 5 MG TABLETS PO PRN (01:27)
[2019-04-20] MEDS ORDERED: BISMUTH SUBSALICYLATE 524 MG/30 ML UD PO PRN (01:27)
[2019-04-20] MEDS ORDERED: chlordiazePOXIDE HCL 25 MG CAPSULE PO PRN (01:27)
[2019-04-20] MEDS ORDERED: ACETAMINOPHEN 325 MG TABLET (FP) PO PRN ×2 (01:27)
[2019-04-20] MEDS ORDERED: MAGNESIUM CITRATE 300 ML BOTTLE PO PRN (01:27)
[2019-04-20] MEDS ORDERED: MAGNESIUM HYDROX 2400MG/30ML ORAL SUSPENSION 30 ML CUP PO PRN (01:27)
[2019-04-20] MEDS ORDERED: MENTHOL/PHENOL 1 EACH UD MM PRN (01:27)
[2019-04-20] MEDS ORDERED: ALBUTEROL SO4 HFA INHALER IH PRN (01:29)
--- NOTE | 2019-04-20 01:59 | HP ---
CIWA Score Nausea/Vomitin-Mild Nausea/No Vomiting Muscle Tremors: 3 Anxiety: 3 Agitation: 3 Paroxysmal Sweats: 2 Orientation: 2-Disoriented Date<2 days Tacttile Disturbances: 0-None Auditory Disturbances: 0-None Visual Disturbances: 0-None Headache: 0-None Present CIWA-Ar Total Score: 14 - Admission Criteria OASAS Guidelines: Admission for Medically Managed Detox: Requires at least one of the followin. CIWA greater than 12 2. Seizures within the past 24 hours 3. Delirium tremens within the past 24 hours 4. Hallucinations within the past 24 hours 5. Acute intervention needed for co occurring medical disorder 6. Acute intervention needed for co occurring psychiatric disorder 7. Severe withdrawal that cannot be handled at a lower level of care (continued vomiting, continued diarrhea, abnormal vital signs) requiring intravenous medication and/or fluids 8. Admitting History and Physical - Smoking History Smoking history: Never smoked Have you smoked in the past 12 months: No Aproximately how many cigarettes per day: 20 - Alcohol/Substance Use Hx Alcohol Use: Yes Admission [facility] Allergies/Adverse Reactions: Allergies Allergy/AdvReac Type Severity Reaction Status Date / Time No Known Allergies Allergy Verified 04/19/19 22:42 - Ebola screening Have you traveled outside of the country in the last 21 days: No Have you had contact with anyone from an Ebola affected area: No Do you have a fever: No Patient History - Patient Medical History Hx Anemia: No Hx Asthma: Yes Hx Chronic Obstructive Pulmonary Disease (COPD): No Hx Cancer: No Hx Cardiac Disorders: No Hx Congestive Heart Failure: No Hx Hypertension: Yes (Not on medication) Hx Hypercholesterolemia: Yes (Not on medication) Hx Pacemaker: No HX Cerebrovascular Accident: No Hx Seizures: No (blackouts alcohol related last 1 month ago) Hx Dementia: No Hx Diabetes: Yes (metformin ) Hx Gastrointestinal Disorders: No Hx Liver Disease: No Hx Genitourinary Disorders: No Hx Sexually Transmitted Disorders: No Hx Renal Disease (ESRD): No Hx Thyroid Disease: No Hx Human Immunodeficiency Virus (HIV): No (Negative 2019) Hx Hepatitis C: Yes Hx Depression: Yes (Not on medication) Hx Suicide Attempt: No (Denies suicidal ideation at ths time) Hx Bipolar Disorder: No Hx Schizophrenia: No - Patient Surgical History Past Surgical History: Yes Hx Neurologic Surgery: No Hx Cataract Extraction: No Hx Cardiac Surgery: No Hx Lung Surgery: No Hx Breast Surgery: No Hx Breast Biopsy: No Hx Abdominal Surgery: Yes (umbilical hernia repair ) Hx Appendectomy: No Hx Cholecystectomy: No Hx Genitourinary Surgery: No Hx Section: No Hx Orthopedic Surgery: No Hx Hysterectomy: No Other Surgical History: rt eye surgery while in jail ? cause / low back pain hx Anesthesia Reaction: No - PPD History Previous Implant?: Yes Documented Results: Negative w/proof Implanted On Prior [facility] Admission?: Yes Date: 02/03/19 - Smoking Cessation Smoking history: Never smoked Have you smoked in the past 12 months: No Aproximately how many cigarettes per day: 20 Cigars Per Day: 0 Hx Chewing Tobacco Use: No Initiated information on smoking cessation: No - Substances abused Alcohol Substance route: Oral Frequency: Daily Amount used: 24 bottles of beer Age of first use: 16 Date of last use: 04/19/19 Admission Physical Exam BHS - Vital Signs Vital Signs: Vital Signs - 24 hr 04/20/19 04/20/19 00:45 00:51 Temperature 97.6 F Pulse Rate 93 H Respiratory 18 18 Rate Blood Pressure 135/63 - Diagnostic (1) Leg swelling Current Visit: No Status: Acute (2) Asthma Current Visit: No Status: Chronic Qualifiers: Asthma severity: mild Asthma persistence: intermittent Asthma complication type: with status asthmaticus Qualified Code(s): J45.22 - Mild intermittent asthma with status asthmaticus (3) Blind right eye Current Visit: No Status: Chronic Qualifiers: Left eye visual impairment category: left - unspecified impairment Qualified Code(s): H54.40 - Blindness, one eye, unspecified eye (4) Cocaine dependence Current Visit: No Status: Chronic (5) Diabetes mellitus Current Visit: No Status: Chronic Qualifiers: Diabetes mellitus type: type 2 Diabetes mellitus complication status: with other specified complication (6) Hepatitis C Current Visit: No Status: Chronic Qualifiers: Viral hepatitis chronicity: carrier Qualified Code(s): B18.2 - Chronic viral hepatitis C (7) Hypertension Current Visit: No Status: Chronic Qualifiers: Hypertension type: essential hypertension Qualified Code(s): I10 - Essential (primary) hypertension Breathalyzer - Breathalyzer Breathalyzer: 0.091 Urine Drug Screen - Test Device Lot number: [id number] Expiration date: 01/23/21 - Control Is test valid?: Yes - Results Drug screen NEGATIVE: No Urine drug screen results: CLAUDIA-Cocaine
[2019-04-20] MEDS: chlordiazePOXIDE HCL 25 MG CAPSULE PO SCH ×4 (05:45→22:15)
[2019-04-20] MEDS: metFORMIN HCL 500 MG TABLET (FP) PO SCH ×2 (06:38→16:46)
--- NOTE | 2019-04-20 09:42 | EKG ---
Test Reason : Blood Pressure : / mmHG Vent. Rate : 084 BPM Atrial Rate : 084 BPM P-R Int : 122 ms QRS Dur : 112 ms QT Int : 414 ms P-R-T Axes : 057 004 028 degrees QTc Int : 489 ms NORMAL SINUS RHYTHM PROLONGED QT ABNORMAL ECG WHEN COMPARED WITH ECG OF 03-FEB-2019 07:17, NO SIGNIFICANT CHANGE WAS FOUND Confirmed by Mike Jose MD ([id number]) on 04/20/2019 9:42:05 AM Referred By: GEORGE Confirmed By:Mike Jose MD
[2019-04-20] MEDS: ASPIRIN COATED 81 MG TABLET.EC PO SCH (10:18)
[2019-04-20] MEDS: PRENATAL VITAMINS W/ FOLIC ACID TABLET (FP) PO SCH (10:18)
[2019-04-20] MEDS: TAMSULOSIN HCL 0.4 MG CAP PO SCH (10:18)
[2019-04-20] MEDS ORDERED: FLU VACCINE QUAD 60 MCG/0.5 ML (MDV 19-20) IM ONE (12:00)
--- NOTE | 2019-04-20 13:30 | EKG ---
Test Reason : Blood Pressure : / mmHG Vent. Rate : 096 BPM Atrial Rate : 096 BPM P-R Int : 134 ms QRS Dur : 104 ms QT Int : 384 ms P-R-T Axes : 043 -05 023 degrees QTc Int : 485 ms NORMAL SINUS RHYTHM PROLONGED QT ABNORMAL ECG WHEN COMPARED WITH ECG OF 20-APR-2019 01:47, NO SIGNIFICANT CHANGE WAS FOUND Confirmed by Mike Jose MD ([id number]) on 04/20/2019 1:30:22 PM Referred By: GEORGE HEIN Confirmed By:Mike Jose MD
--- NOTE | 2019-04-20 14:47 | CONSULT ---
[facility] Psychiatric Consult - Data Date of interview: 04/20/19 Admission source: [facility] Identifying data: Revisit to [facility] and admission to [address] [place] [address] for this 64 y/o male self-referred for detoxification treatment. ART isssues : alcohol , cocaine. Patient is , father of five (lost one son), homeless, unemployed and supported on food stamps. Substance Abuse History: Discussed with patient. Details in current [facility] report as follows : Smoking history: Never smoked. Have you smoked in the past 12 months: No. Aproximately how many cigarettes per day: 20. Cigars Per Day: 0. Hx Chewing Tobacco Use: No. Initiated information on smoking cessation: No. - Substance & Tx. History. Hx Alcohol Use: Yes. Substance Use Type: Alcohol, Cocaine. Hx Substance Use Treatment: Yes Medical History: Medical profile is remarkable for bronchial asthma, diabeyes mellitus, hypertension, chronic lumbar pain, hepatitis C, blindness (right eye) , antecedent of dislocation of right shoulder and history of umbilical herniorraphy. Psychiatric History: Patient denies history of psychiatric hospitalizations, OPD care or suicide attempts. Physical/Sexual Abuse/Trauma History: Trauma : of a son. Additional Comment: Urine drug screen results: CLAUDIA-Cocaine. Noted. Mental Status Exam - Mental Status Exam Alert and Oriented to: Time, Place, Person Cognitive Function: Good Patient Appearance: Unkempt, Disheveled Mood: Withdrawn Affect: Mood Congruent, Constricted Patient Behavior: Fatigued, Appropriate, Cooperative Speech Pattern: Clear (communicates in telugu), Appropriate Voice Loudness: Normal Thought Process: Goal Oriented Thought Disorder: Not Present Hallucinations: Denies Suicidal Ideation: Denies Homicidal Ideation: Denies Insight/Judgement: Poor Sleep: Poorly, Difficulty falling asleep Appetite: Good Gait/Station: Normal Psychiatric Findings - Problem List (Clare 1, 2,3) (1) Alcohol dependence Current Visit: Yes Status: Chronic Qualifiers: Substance use status: uncomplicated Qualified Code(s): F10.20 - Alcohol dependence, uncomplicated (2) Cocaine dependence Current Visit: Yes Status: Chronic (3) Drug-induced mood disorder Current Visit: Yes Status: Chronic (4) Insomnia Current Visit: Yes Status: Chronic - Initial Treatment Plan Initial Treatment Plan: Psychoeducation. Sleep hygiene. Detoxification. Support. Insomnia is addressed with melatonin at bedtime. AA meetings. Groups ( in telugu). Observation.
--- NOTE | 2019-04-20 15:31 | PN ---
S CIWA - CIWA Score Nausea/Vomitin-Mild Nausea/No Vomiting Muscle Tremors: 2 Anxiety: 3 Agitation: 0-Normal Activity Paroxysmal Sweats: 2 Orientation: 0-Oriented Tacttile Disturbances: 0-None Auditory Disturbances: 0-None Visual Disturbances: 2-Mild Sensitivity Headache: 1-Very Mild CIWA-Ar Total Score: 11 S Progress Note (SOAP) Subjective: 64 years old male admitted on 04/20/19 for alcohol withdrawal sx management treating with librium detox regiment ate breakfast and lunch in room tolerated food and fluid well feeling tired resting in bed comfortably prefers to stay in room today Objective: 04/20/19 15:32 Vital Signs Temperature 96.7 F L 04/20/19 12:55 Pulse Rate 59 L 04/20/19 12:55 Respiratory Rate 18 04/20/19 12:55 Blood Pressure 106/74 04/20/19 12:55 O2 Sat by Pulse Oximetry (%) Laboratory Last Values POC Glucometer 208 UNITS (80-120) 04/20/19 06:27 04/20/19 15:32 lab pending Assessment: 04/20/19 15:33 alcohol withdrawal Plan: librium regiment
[2019-04-20] MEDS: ATORVASTATIN CA 20 MG TABLET (FP) PO SCH (22:15)
[2019-04-20] MEDS: THIAMINE HCL 100 MG TABLET (FP) PO SCH (22:15)
[2019-04-21] MEDS: chlordiazePOXIDE HCL 25 MG CAPSULE PO SCH ×4 (05:40→22:24)
[2019-04-21] MEDS: metFORMIN HCL 500 MG TABLET (FP) PO SCH ×2 (08:45→18:31)
[2019-04-21] MEDS: TAMSULOSIN HCL 0.4 MG CAP PO SCH (08:54)
[2019-04-21] MEDS: PRENATAL VITAMINS W/ FOLIC ACID TABLET (FP) PO SCH (10:55)
[2019-04-21] MEDS: ASPIRIN COATED 81 MG TABLET.EC PO SCH (10:55)
[2019-04-21 11:00] LABS: HEMATOCRIT 28.8 % (35.4-49); HEMOGLOBIN 9.1 GM/dL (11.7-16.9); MCH 24.9 pg (25.7-33.7); MCHC 31.5 g/dl (32.0-35.9); MEAN CELL VOLUME 79.2 fl (80-96); MEAN PLT VOLUME 7.6 fl (7.5-11.1); RBC 3.64 M/mm3 (4.00-5.60); RDW 17.9 % (11.9-15.9); WHITE BLOOD COUNT 2.6 K/mm3 (4.0-10.0)
[2019-04-21 11:20] LABS: ALBUMIN 2.2 g/dl (3.4-5.0); BILIRUBIN,TOTAL 1.4 mg/dL (0.2-1); BLOOD UREA NITROGEN 7.4 mg/dL (7-18); CALCIUM 7.9 mg/dL (8.5-10.1); CREATININE 0.7 mg/dL (0.55-1.3); POTASSIUM 3.7 mmol/L (3.5-5.1); TOT PROT 6.5 g/dl (6.4-8.2)
[2019-04-21 11:34] LABS: PLATELET COUNT 46 K/MM3 (134-434)
[2019-04-21 12:05] LABS: RPR REFLEX REACTIVE 1:1 (NONREACTIVE)
--- NOTE | 2019-04-21 12:18 | PN ---
[facility] CIWA - CIWA Score Nausea/Vomitin-Mild Nausea/No Vomiting Muscle Tremors: 4-Moderate,w/Arms Extend Anxiety: 2 Agitation: 1-Slight > Activity Paroxysmal Sweats: 2 Orientation: 0-Oriented Tacttile Disturbances: 0-None Auditory Disturbances: 0-None Visual Disturbances: 0-None Headache: 0-None Present CIWA-Ar Total Score: 10 S Progress Note (SOAP) Subjective: 64 years old male admitted on 04/20/19 for alcohol withdrawal sx management treating with librium detox regiment ate breakfast able to feed self and drinking fluid from the cup tremor anxiety librium 15mg po around 2 pm offer cane for ambulation aid Objective: 04/21/19 12:26 Vital Signs Temperature 96.4 F L 04/21/19 09:10 Pulse Rate 98 H 04/21/19 09:10 Respiratory Rate 16 04/21/19 09:10 Blood Pressure 114/67 04/21/19 09:10 O2 Sat by Pulse Oximetry (%) Laboratory Last Values WBC 2.6 K/mm3 (4.0-10.0) L 04/21/19 08:00 RBC 3.64 M/mm3 (4.00-5.60) L 04/21/19 08:00 Hgb 9.1 GM/dL (11.7-16.9) L 04/21/19 08:00 Hct 28.8 % (35.4-49) L 04/21/19 08:00 MCV 79.2 fl (80-96) L 04/21/19 08:00 MCH 24.9 pg (25.7-33.7) L D 04/21/19 08:00 MCHC 31.5 g/dl (32.0-35.9) L 04/21/19 08:00 RDW 17.9 % (11.9-15.9) H 04/21/19 08:00 Plt Count 46 K/MM3 (134-434) L D 04/21/19 08:00 MPV 7.6 fl (7.5-11.1) 04/21/19 08:00 Platelet Comment No clumping noted 04/21/19 08:00 Sodium 140 mmol/L (136-145) 04/21/19 08:00 Potassium 3.7 mmol/L (3.5-5.1) 04/21/19 08:00 Chloride 108 mmol/L (98-107) H 04/21/19 08:00 Carbon Dioxide 28 mmol/L (21-32) 04/21/19 08:00 Anion Gap 4 MMOL/L (8-16) L 04/21/19 08:00 BUN 7.4 mg/dL (7-18) 04/21/19 08:00 Creatinine 0.7 mg/dL (0.55-1.3) 04/21/19 08:00 Est GFR (CKD-EPI)AfAm 117.22 04/21/19 08:00 Est GFR (CKD-EPI)NonAf 101.14 04/21/19 08:00 POC Glucometer 147 UNITS (80-120) 04/21/19 05:39 Random Glucose 131 mg/dL (74-106) H 04/21/19 08:00 Calcium 7.9 mg/dL (8.5-10.1) L 04/21/19 08:00 Total Bilirubin 1.4 mg/dL (0.2-1) H 04/21/19 08:00 AST 60 U/L (15-37) H 04/21/19 08:00 ALT 39 U/L (13-61) 04/21/19 08:00 Alkaline Phosphatase 119 U/L (45-117) H 04/21/19 08:00 Total Protein 6.5 g/dl (6.4-8.2) 04/21/19 08:00 Albumin 2.2 g/dl (3.4-5.0) L 04/21/19 08:00 RPR Titer Reactive 1:1 (NONREACTIVE) H 04/21/19 08:00 lab noted 04/21/19 12:29 long history of wbc below normal range asymptomatic low hgb ferrous sultate 04/21/19 12:33 low plt discontinue motrin glucose elevation long histoyr of diabetes discontinue regular diet begin no concentrated sugar diet low Ca++ oscal supplement 04/21/19 12:34 04/21/19 12:35 Assessment: 04/21/19 12:38 alcohol withdrawal Plan: librium regiment
[2019-04-21] MEDS ORDERED: chlordiazePOXIDE 5 MG CAPSULE PO ONE (14:00)
[2019-04-21 14:01] LABS: TREPONEMA ANTIBODY NON REACTIVE (NONREACTIVE)
[2019-04-21] MEDS: FERROUS SO4 325 MG TABLET (FP) PO SCH (15:01)
[2019-04-21] MEDS: CALCIUM 250MG/VIT-D 125 UNITS 1 COMBO TABLET PO SCH ×2 (15:01→22:24)
[2019-04-21] MEDS: THIAMINE HCL 100 MG TABLET (FP) PO SCH (22:24)
[2019-04-21] MEDS: ATORVASTATIN CA 20 MG TABLET (FP) PO SCH (22:24)
[2019-04-22] MEDS ORDERED: chlordiazePOXIDE HCL 10 MG CAPSULE PO PRN
[2019-04-22] MEDS: chlordiazePOXIDE HCL 10 MG CAPSULE PO SCH ×4 (06:31→22:43)
[2019-04-22] MEDS: metFORMIN HCL 500 MG TABLET (FP) PO SCH ×2 (06:31→17:32)
[2019-04-22] MEDS: TAMSULOSIN HCL 0.4 MG CAP PO SCH (08:53)
[2019-04-22] MEDS: ASPIRIN COATED 81 MG TABLET.EC PO SCH (10:53)
[2019-04-22] MEDS: FERROUS SO4 325 MG TABLET (FP) PO SCH (10:53)
[2019-04-22] MEDS: PRENATAL VITAMINS W/ FOLIC ACID TABLET (FP) PO SCH (10:53)
[2019-04-22] MEDS: CALCIUM 250MG/VIT-D 125 UNITS 1 COMBO TABLET PO SCH ×2 (10:54→22:43)
--- NOTE | 2019-04-22 12:52 | PN ---
S CIWA - CIWA Score Nausea/Vomitin-No Nausea/No Vomiting Muscle Tremors: 2 Anxiety: 2 Agitation: 0-Normal Activity Paroxysmal Sweats: 2 Orientation: 0-Oriented Tacttile Disturbances: 0-None Auditory Disturbances: 0-None Visual Disturbances: 2-Mild Sensitivity Headache: 0-None Present CIWA-Ar Total Score: 8 BHS Progress Note (SOAP) Subjective: 64 years old male admitted on 04/20/19 for alcohol withdrawal sx management treating with [facility] detox regiment ambulating with cane steady gait disoriented to time of the day and day of the month reoriented to day of the week and day of the month patient is able to retain the information ammonia level due to risk factors of alcohol hepatitis c Objective: 04/22/19 12:53 Vital Signs Temperature 97.2 F L 04/22/19 09:15 Pulse Rate 86 04/22/19 09:15 Respiratory Rate 16 04/22/19 09:15 Blood Pressure 111/66 04/22/19 09:15 O2 Sat by Pulse Oximetry (%) Laboratory Last Values WBC 2.6 K/mm3 (4.0-10.0) L 04/21/19 08:00 RBC 3.64 M/mm3 (4.00-5.60) L 04/21/19 08:00 Hgb 9.1 GM/dL (11.7-16.9) L 04/21/19 08:00 Hct 28.8 % (35.4-49) L 04/21/19 08:00 MCV 79.2 fl (80-96) L 04/21/19 08:00 MCH 24.9 pg (25.7-33.7) L D 04/21/19 08:00 MCHC 31.5 g/dl (32.0-35.9) L 04/21/19 08:00 RDW 17.9 % (11.9-15.9) H 04/21/19 08:00 Plt Count 46 K/MM3 (134-434) L D 04/21/19 08:00 MPV 7.6 fl (7.5-11.1) 04/21/19 08:00 Platelet Comment No clumping noted 04/21/19 08:00 Sodium 140 mmol/L (136-145) 04/21/19 08:00 Potassium 3.7 mmol/L (3.5-5.1) 04/21/19 08:00 Chloride 108 mmol/L (98-107) H 04/21/19 08:00 Carbon Dioxide 28 mmol/L (21-32) 04/21/19 08:00 Anion Gap 4 MMOL/L (8-16) L 04/21/19 08:00 BUN 7.4 mg/dL (7-18) 04/21/19 08:00 Creatinine 0.7 mg/dL (0.55-1.3) 04/21/19 08:00 Est GFR (CKD-EPI)AfAm 117.22 04/21/19 08:00 Est GFR (CKD-EPI)NonAf 101.14 04/21/19 08:00 POC Glucometer 159 UNITS (80-120) 04/22/19 06:30 Random Glucose 131 mg/dL (74-106) H 04/21/19 08:00 Calcium 7.9 mg/dL (8.5-10.1) L 04/21/19 08:00 Total Bilirubin 1.4 mg/dL (0.2-1) H 04/21/19 08:00 AST 60 U/L (15-37) H 04/21/19 08:00 ALT 39 U/L (13-61) 04/21/19 08:00 Alkaline Phosphatase 119 U/L (45-117) H 04/21/19 08:00 Total Protein 6.5 g/dl (6.4-8.2) 04/21/19 08:00 Albumin 2.2 g/dl (3.4-5.0) L 04/21/19 08:00 RPR Titer Reactive 1:1 (NONREACTIVE) H 04/21/19 08:00 T.pallidum Ab ([facility]HA) Non reactive (NONREACTIVE) 04/21/19 08:00 HIV 1&2 Antibody Screen Negative 04/21/19 08:00 HIV P24 Antigen Negative 04/21/19 08:00 04/22/19 12:54 lab noted chronic wbc fluctuation possible alcohol induced bone marrow suppression Assessment: 04/22/19 12:55 alcohol withdrawal Plan: librum regiment ammonia level
[2019-04-22] MEDS: THIAMINE HCL 100 MG TABLET (FP) PO SCH (22:43)
[2019-04-22] MEDS: ATORVASTATIN CA 20 MG TABLET (FP) PO SCH (22:43)
[2019-04-23] MEDS: chlordiazePOXIDE HCL 10 MG CAPSULE PO SCH ×2 (05:04→17:06)
[2019-04-23] MEDS: metFORMIN HCL 500 MG TABLET (FP) PO SCH ×2 (06:54→17:06)
[2019-04-23] MEDS: TAMSULOSIN HCL 0.4 MG CAP PO SCH (09:24)
[2019-04-23] MEDS: PRENATAL VITAMINS W/ FOLIC ACID TABLET (FP) PO SCH (10:35)
[2019-04-23] MEDS: CALCIUM 250MG/VIT-D 125 UNITS 1 COMBO TABLET PO SCH ×2 (10:35→22:24)
[2019-04-23] MEDS: FERROUS SO4 325 MG TABLET (FP) PO SCH (10:36)
[2019-04-23] MEDS: ASPIRIN COATED 81 MG TABLET.EC PO SCH (10:36)
--- NOTE | 2019-04-23 11:49 | PN ---
S CIWA - CIWA Score Nausea/Vomitin-No Nausea/No Vomiting Muscle Tremors: 3 Anxiety: 0-No Anxiety, at Ease Agitation: 0-Normal Activity Paroxysmal Sweats: No Perspiration Orientation: 0-Oriented Tacttile Disturbances: 0-None Auditory Disturbances: 1-Very Mild Visual Disturbances: 0-None Headache: 0-None Present CIWA-Ar Total Score: 4 BHS Progress Note (SOAP) Subjective: No complaints Objective: 04/23/19 11:48 Laboratory Tests 04/20/19 04/20/19 04/21/19 06:27 16:44 05:39 WBC RBC Hgb Hct MCV MCH MCHC RDW Plt Count MPV Platelet Comment Sodium Potassium Chloride Carbon Dioxide Anion Gap BUN Creatinine Est GFR (CKD-EPI)AfAm Est GFR (CKD-EPI)NonAf POC Glucometer 208 135 147 Random Glucose Calcium Total Bilirubin AST ALT Alkaline Phosphatase Ammonia Total Protein Albumin RPR Titer T.pallidum Ab ([facility]) HIV 1&2 Antibody Screen HIV P24 Antigen 04/21/19 04/21/19 04/21/19 08:00 08:00 08:00 WBC 2.6 L RBC 3.64 L Hgb 9.1 L Hct 28.8 L MCV 79.2 L MCH 24.9 L D MCHC 31.5 L RDW 17.9 H Plt Count 46 L D MPV 7.6 Platelet Comment No clumping noted Sodium 140 Potassium 3.7 Chloride 108 H Carbon Dioxide 28 Anion Gap 4 L BUN 7.4 Creatinine 0.7 Est GFR (CKD-EPI)AfAm 117.22 Est GFR (CKD-EPI)NonAf 101.14 POC Glucometer Random Glucose 131 H Calcium 7.9 L Total Bilirubin 1.4 H AST 60 H ALT 39 Alkaline Phosphatase 119 H Ammonia Total Protein 6.5 Albumin 2.2 L RPR Titer T.pallidum Ab (A) HIV 1&2 Antibody Screen Negative HIV P24 Antigen Negative 04/21/19 04/21/19 04/22/19 08:00 16:31 06:30 WBC RBC Hgb Hct MCV MCH MCHC RDW Plt Count MPV Platelet Comment Sodium Potassium Chloride Carbon Dioxide Anion Gap BUN Creatinine Est GFR (CKD-EPI)AfAm Est GFR (CKD-EPI)NonAf POC Glucometer 207 159 Random Glucose Calcium Total Bilirubin AST ALT Alkaline Phosphatase Ammonia Total Protein Albumin RPR Titer Reactive 1:1 H T.pallidum Ab ([facility]) Non reactive HIV 1&2 Antibody Screen HIV P24 Antigen 04/22/19 04/23/19 04/23/19 16:32 05:04 08:15 WBC RBC Hgb Hct MCV MCH MCHC RDW Plt Count MPV Platelet Comment Sodium Potassium Chloride Carbon Dioxide Anion Gap BUN Creatinine Est GFR (CKD-EPI)AfAm Est GFR (CKD-EPI)NonAf POC Glucometer 193 169 Random Glucose Calcium Total Bilirubin AST ALT Alkaline Phosphatase Ammonia 69.70 H Total Protein Albumin RPR Titer T.pallidum Ab ([facility]) HIV 1&2 Antibody Screen HIV P24 Antigen 04/23/19 11:56 PE Gnl: WDWN, in no distress Mental status: awake, alert, nl language Motor: grossly nl Assessment: 04/23/19 11:57 1. Alcohol use disorder 2. 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 continue alcohol withdrawal protocol 2. will ask pt if he has been tx for positive RPR
--- NOTE | 2019-04-23 15:10 | PN ---
[facility]HS Progress Note Note: Reviewed chart Syphilis treated in the past
[2019-04-23] MEDS: THIAMINE HCL 100 MG TABLET (FP) PO SCH (22:24)
[2019-04-23] MEDS: ATORVASTATIN CA 20 MG TABLET (FP) PO SCH (22:24)
[2019-04-24] MEDS ORDERED: chlordiazePOXIDE HCL 10 MG CAPSULE PO ONE (05:00)
[2019-04-24] MEDS: metFORMIN HCL 500 MG TABLET (FP) PO SCH (06:05)
[2019-04-24 09:46] VITALS: BP 127/65; PULSE 79; TEMP 96
--- NOTE | 2019-04-24 12:43 | DS ---
[facility] Detox Discharge Summary Admission Date: 04/20/19 Discharge Date: 04/24/19 - History Present History: Alcohol Dependence Additional Comments: As per H&P: "64 years old male with a lo9ng history of alcohol dependence is seeking admission to detox. Patient has been to multiple detox and reports insignificant period of sobriety. His last admission to [facility] was for the period 02/01/2019- 2018 and he reports that he relapsed immediately he was discharged. He hs medical sa1rayaz of DM type 2, hypertension, hyperlipidemia, Hep. C, asthma, right eye blindness and bilateral lower extremity swelling. He denies suicide attempt and suicidal ideation at this time". Pt is medically cleared and discharged today. Pt completed the detox protocol. Pt is encouraged to follow-up with an outpatient CD program and also to follow- up with his pmd. Pt verbalized understanding of the information given. Pt is alert and oriented x3 and in no acute respiratory distress. Pertinent Past History: H/o DM, HTN, hyperlipidemia, asthma, and alcohol use disorder. - Physical Exam Results Vital Signs: Vital Signs Temperature 96.0 F L 04/24/19 08:50 Pulse Rate 79 04/24/19 08:50 Respiratory Rate 18 04/24/19 08:50 Blood Pressure 127/65 04/24/19 08:50 O2 Sat by Pulse Oximetry (%) Vital Signs 04/24/19 04/24/19 07:06 08:50 Temperature 96.9 F L 96.0 F L Pulse Rate 86 79 Respiratory 18 18 Rate Blood Pressure 124/74 127/65 Laboratory Last Values WBC 2.6 K/mm3 (4.0-10.0) L 04/21/19 08:00 RBC 3.64 M/mm3 (4.00-5.60) L 04/21/19 08:00 Hgb 9.1 GM/dL (11.7-16.9) L 04/21/19 08:00 Hct 28.8 % (35.4-49) L 04/21/19 08:00 MCV 79.2 fl (80-96) L 04/21/19 08:00 MCH 24.9 pg (25.7-33.7) L D 04/21/19 08:00 MCHC 31.5 g/dl (32.0-35.9) L 04/21/19 08:00 RDW 17.9 % (11.9-15.9) H 04/21/19 08:00 Plt Count 46 K/MM3 (134-434) L D 04/21/19 08:00 MPV 7.6 fl (7.5-11.1) 04/21/19 08:00 Platelet Comment No clumping noted 04/21/19 08:00 Sodium 140 mmol/L (136-145) 04/21/19 08:00 Potassium 3.7 mmol/L (3.5-5.1) 04/21/19 08:00 Chloride 108 mmol/L (98-107) H 04/21/19 08:00 Carbon Dioxide 28 mmol/L (21-32) 04/21/19 08:00 Anion Gap 4 MMOL/L (8-16) L 04/21/19 08:00 BUN 7.4 mg/dL (7-18) 04/21/19 08:00 Creatinine 0.7 mg/dL (0.55-1.3) 04/21/19 08:00 Est GFR (CKD-EPI)AfAm 117.22 04/21/19 08:00 Est GFR (CKD-EPI)NonAf 101.14 04/21/19 08:00 POC Glucometer 169 UNITS (80-120) 04/24/19 06:03 Random Glucose 131 mg/dL (74-106) H 04/21/19 08:00 Calcium 7.9 mg/dL (8.5-10.1) L 04/21/19 08:00 Total Bilirubin 1.4 mg/dL (0.2-1) H 04/21/19 08:00 AST 60 U/L (15-37) H 04/21/19 08:00 ALT 39 U/L (13-61) 04/21/19 08:00 Alkaline Phosphatase 119 U/L (45-117) H 04/21/19 08:00 Ammonia 69.70 umol/L (11-32) H 04/23/19 08:15 Total Protein 6.5 g/dl (6.4-8.2) 04/21/19 08:00 Albumin 2.2 g/dl (3.4-5.0) L 04/21/19 08:00 RPR Titer Reactive 1:1 (NONREACTIVE) H 04/21/19 08:00 T.pallidum Ab (MHA) Non reactive (NONREACTIVE) 04/21/19 08:00 HIV 1&2 Antibody Screen Negative 04/21/19 08:00 HIV P24 Antigen Negative 04/21/19 08:00 Labs noted. Pertinent Admission Physical Exam Findings: withdrawal symptoms. - Treatment Hospital Course: Detox Protocol Followed, Detoxed Safely, Responded well, Discharged Condition Good - Medication Discharge Medications: Ambulatory Orders Atorvastatin Ca [Lipitor] 20 mg PO HS 07/26/14 Albuterol Sulfate Inhaler - [Ventolin HFA Inhaler -] 2 inh PO Q4H PRN #1 cartridge 09/09/14 Aspirin Coated [Ecotrin -] 81 mg PO DAILY #30 tablet.ec 09/09/14 Thiamine HCl [Vitamin B1 -] 100 mg PO HS #30 tablet 09/09/14 metFORMIN HCL [Glucophage -] 500 mg PO BIDAC #60 tablet 09/09/14 Folic Acid 1 mg PO DAILY 02/01/19 Multivitamin [One-Daily Multi-Vitamin] 1 each PO DAILY 02/01/19 Tamsulosin HCl 0.4 mg PO DAILY 02/01/19 - Diagnosis (1) Alcohol dependence Status: Chronic Qualifiers: Substance use status: uncomplicated Qualified Code(s): F10.20 - Alcohol dependence, uncomplicated (2) Asthma Status: Chronic Qualifiers: Asthma severity: mild Asthma persistence: intermittent Asthma complication type: with status asthmaticus Qualified Code(s): J45.22 - Mild intermittent asthma with status asthmaticus (3) Blind right eye Status: Chronic Qualifiers: Left eye visual impairment category: left - unspecified impairment Qualified Code(s): H54.40 - Blindness, one eye, unspecified eye (4) Cannabis dependence Status: Chronic (5) Diabetes mellitus Status: Chronic Qualifiers: Diabetes mellitus type: type 2 Diabetes mellitus complication status: with other specified complication (6) Hepatitis C Status: Chronic Qualifiers: Viral hepatitis chronicity: carrier Qualified Code(s): B18.2 - Chronic viral hepatitis C (7) Hypertension Status: Chronic Qualifiers: Hypertension type: essential hypertension Qualified Code(s): I10 - Essential (primary) hypertension - AMA Did Patient Leave Against Medical Advice: No
== END 2019-04-24 10:18 | disposition home or self-care (01) | DRG 774 ==
LOC: YASAS 20:54 → Y3N 04-20 00:14
PROVIDERS: ADMIT Allergy & Immunology; ATTEND Allergy & Immunology
PROC: HZ2ZZZZ Detoxification Services for Substance Abuse Treatment (ICD-10-PCS; principal; 2019-04-20)
DX: F10.230 Alcohol dependence with withdrawal, uncomplicated (principal); F14.20 Cocaine dependence, uncomplicated; F19.24 Other psychoactive substance dependence with psychoactive substance-induced mood disorder; D72.819 Decreased white blood cell count, unspecified; I10 Essential (primary) hypertension; E11.9 Type 2 diabetes mellitus without complications; Z79.84 Long term (current) use of oral hypoglycemic drugs; E83.51 Hypocalcemia; E78.5 Hyperlipidemia, unspecified; G47.00 Insomnia, unspecified; J45.22 Mild intermittent asthma with status asthmaticus; H54.61 Unqualified visual loss, right eye, normal vision left eye; R60.0 Localized edema; B18.2 Chronic viral hepatitis C; Z86.19 Personal history of other infectious and parasitic diseases; Z99.89 Dependence on other enabling machines and devices
CPT/HCPCS: 36415; 80053; 82140; 82962; 85027; 86593; 86780; 87389; 93005; 93010; G0008; Q2036

== ENCOUNTER 2020-04-04 11:08 | Inpatient (IN) | payer OTHER ==
[2020-04-04 11:46] VITALS: BMI 27.6
[2020-04-04] MEDS ORDERED: BISMUTH SUBSALICYLATE 262 MG/15 ML BTL PO PRN (12:21)
[2020-04-04] MEDS ORDERED: MENTHOL/PHENOL 1 EACH UD MM PRN (12:21)
[2020-04-04] MEDS ORDERED: ACETAMINOPHEN 325 MG TABLET (FP) PO PRN ×2 (12:21)
[2020-04-04] MEDS ORDERED: chlordiazePOXIDE HCL 25 MG CAPSULE PO PRN (12:21)
[2020-04-04] MEDS ORDERED: MAGNESIUM HYDROX 2400MG/30ML ORAL SUSPENSION 30 ML CUP PO PRN (12:21)
[2020-04-04] MEDS ORDERED: METHOCARBAMOL 500 MG TABLET PO PRN (12:21)
[2020-04-04] MEDS ORDERED: MAGNESIUM CITRATE 300 ML BOTTLE PO PRN (12:21)
[2020-04-04] MEDS ORDERED: IBUPROFEN 400 MG TABLET (FP) PO PRN (12:21)
[2020-04-04] MEDS ORDERED: ONDANSETRON *ODT* 4 MG TABLET SL PRN (12:21)
[2020-04-04] MEDS ORDERED: MAG HYDROX/AL HYDROX/SIMETH 30 ML UNIT-DOSE CUP PO PRN (12:21)
[2020-04-04] MEDS: chlordiazePOXIDE HCL 25 MG CAPSULE PO SCH ×3 (13:19→22:27)
[2020-04-04] MEDS: PRENATAL VITAMINS W/ FOLIC ACID TABLET (FP) PO SCH (13:23)
[2020-04-04] MEDS: hydrOXYzine PAMOATE 25 MG CAPSULE (FP) PO SCH ×3 (13:24→22:27)
[2020-04-04 17:51] LABS: POTASSIUM 3.9 mmol/L (3.5-5.1)
[2020-04-04 17:54] LABS: HEMATOCRIT 36.8 % (35.4-49); MCH 26.2 pg (25.7-33.7); MCHC 32.6 g/dl (32.0-35.9); MEAN CELL VOLUME 80.3 fl (80-96); MEAN PLT VOLUME 7.3 fl (7.5-11.1); PLATELET COUNT 121 K/MM3 (134-434); RBC 4.58 M/mm3 (4.00-5.60); RDW 17.6 % (11.9-15.9); WHITE BLOOD COUNT 5.5 K/mm3 (4.0-10.0)
[2020-04-04 17:58] LABS: CALCIUM 8.1 mg/dL (8.5-10.1)
[2020-04-04 17:59] LABS: ALBUMIN 3.1 g/dl (3.4-5.0); BLOOD UREA NITROGEN 7.1 mg/dL (7-18)
[2020-04-04 18:02] LABS: CREATININE 0.7 mg/dL (0.55-1.3)
[2020-04-04 18:03] LABS: BILIRUBIN,TOTAL 1.4 mg/dL (0.2-1); TOT PROT 8.2 g/dl (6.4-8.2)
[2020-04-04] MEDS: MELATONIN 5 MG TABLETS PO SCH (22:26)
[2020-04-04] MEDS: THIAMINE HCL 100 MG TABLET (FP) PO SCH (22:27)
[2020-04-05] MEDS: chlordiazePOXIDE HCL 25 MG CAPSULE PO SCH ×4 (06:10→22:17)
[2020-04-05] MEDS: hydrOXYzine PAMOATE 25 MG CAPSULE (FP) PO SCH ×2 (06:12→10:10)
[2020-04-05] MEDS ORDERED: ALBUTEROL SO4 HFA INHALER IH PRN (08:37)
[2020-04-05] MEDS: PRENATAL VITAMINS W/ FOLIC ACID TABLET (FP) PO SCH (10:10)
[2020-04-05] MEDS: ASPIRIN COATED 81 MG TABLET.EC PO SCH (10:10)
[2020-04-05] MEDS: TAMSULOSIN HCL 0.4 MG CAP PO SCH (10:10)
[2020-04-05] MEDS ORDERED: hydrOXYzine PAMOATE 25 MG CAPSULE (FP) PO PRN (11:21)
[2020-04-05] MEDS: metFORMIN HCL 500 MG TABLET (FP) PO SCH (17:37)
[2020-04-05] MEDS: MELATONIN 5 MG TABLETS PO SCH (22:18)
[2020-04-05] MEDS: THIAMINE HCL 100 MG TABLET (FP) PO SCH (22:19)
[2020-04-06] MEDS: metFORMIN HCL 500 MG TABLET (FP) PO SCH ×2 (06:21→16:56)
[2020-04-06] MEDS: chlordiazePOXIDE HCL 25 MG CAPSULE PO SCH ×4 (06:21→22:39)
[2020-04-06] MEDS: TAMSULOSIN HCL 0.4 MG CAP PO SCH (10:18)
[2020-04-06] MEDS: ASPIRIN COATED 81 MG TABLET.EC PO SCH (10:18)
[2020-04-06] MEDS: PRENATAL VITAMINS W/ FOLIC ACID TABLET (FP) PO SCH (10:19)
[2020-04-06 11:54] LABS: HEMATOCRIT 34.5 % (35.4-49); HEMOGLOBIN 11.1 GM/dL (11.7-16.9); MCH 26.1 pg (25.7-33.7); MCHC 32.3 g/dl (32.0-35.9); MEAN PLT VOLUME 7.5 fl (7.5-11.1); PLATELET COUNT 62 K/MM3 (134-434); RBC 4.26 M/mm3 (4.00-5.60); RDW 17.5 % (11.9-15.9); WHITE BLOOD COUNT 2.8 K/mm3 (4.0-10.0)
[2020-04-06 12:28] LABS: ALBUMIN 2.5 g/dl (3.4-5.0); BILIRUBIN,TOTAL 0.7 mg/dL (0.2-1); BLOOD UREA NITROGEN 8.7 mg/dL (7-18); CALCIUM 8.3 mg/dL (8.5-10.1); CREATININE 0.7 mg/dL (0.55-1.3); POTASSIUM 3.6 mmol/L (3.5-5.1); TOT PROT 6.7 g/dl (6.4-8.2)
[2020-04-06] MEDS: MELATONIN 5 MG TABLETS PO SCH (22:40)
[2020-04-06] MEDS: THIAMINE HCL 100 MG TABLET (FP) PO SCH (23:10)
[2020-04-07] MEDS ORDERED: chlordiazePOXIDE HCL 10 MG CAPSULE PO PRN
[2020-04-07] MEDS: chlordiazePOXIDE HCL 10 MG CAPSULE PO SCH ×4 (06:23→22:19)
[2020-04-07] MEDS: metFORMIN HCL 500 MG TABLET (FP) PO SCH ×2 (06:24→17:48)
[2020-04-07] MEDS: ASPIRIN COATED 81 MG TABLET.EC PO SCH (10:55)
[2020-04-07] MEDS: TAMSULOSIN HCL 0.4 MG CAP PO SCH (10:55)
[2020-04-07] MEDS: PRENATAL VITAMINS W/ FOLIC ACID TABLET (FP) PO SCH (10:55)
[2020-04-07] MEDS: MELATONIN 5 MG TABLETS PO SCH (22:18)
[2020-04-07] MEDS: THIAMINE HCL 100 MG TABLET (FP) PO SCH (22:19)
[2020-04-08] MEDS: chlordiazePOXIDE HCL 10 MG CAPSULE PO SCH ×2 (07:07→18:06)
[2020-04-08] MEDS: metFORMIN HCL 500 MG TABLET (FP) PO SCH ×2 (07:07→18:06)
[2020-04-08] MEDS: TAMSULOSIN HCL 0.4 MG CAP PO SCH (09:36)
[2020-04-08] MEDS: ASPIRIN COATED 81 MG TABLET.EC PO SCH (09:36)
[2020-04-08] MEDS: PRENATAL VITAMINS W/ FOLIC ACID TABLET (FP) PO SCH (09:36)
[2020-04-08] MEDS: THIAMINE HCL 100 MG TABLET (FP) PO SCH (21:53)
[2020-04-08] MEDS: MELATONIN 5 MG TABLETS PO SCH (21:54)
[2020-04-09] MEDS ORDERED: chlordiazePOXIDE HCL 10 MG CAPSULE PO ONE (05:00)
[2020-04-09] MEDS: metFORMIN HCL 500 MG TABLET (FP) PO SCH ×2 (06:48→19:09)
[2020-04-09] MEDS: PRENATAL VITAMINS W/ FOLIC ACID TABLET (FP) PO SCH (09:30)
[2020-04-09] MEDS: ASPIRIN COATED 81 MG TABLET.EC PO SCH (09:30)
[2020-04-09] MEDS: TAMSULOSIN HCL 0.4 MG CAP PO SCH (09:30)
[2020-04-09] MEDS: THIAMINE HCL 100 MG TABLET (FP) PO SCH (22:53)
[2020-04-09] MEDS: MELATONIN 5 MG TABLETS PO SCH (22:53)
[2020-04-10] MEDS: metFORMIN HCL 500 MG TABLET (FP) PO SCH ×2 (06:46→17:45)
[2020-04-10] MEDS: ASPIRIN COATED 81 MG TABLET.EC PO SCH (09:24)
[2020-04-10] MEDS: TAMSULOSIN HCL 0.4 MG CAP PO SCH (09:24)
[2020-04-10] MEDS: PRENATAL VITAMINS W/ FOLIC ACID TABLET (FP) PO SCH (09:24)
[2020-04-10] MEDS: MELATONIN 5 MG TABLETS PO SCH (22:09)
[2020-04-10] MEDS: THIAMINE HCL 100 MG TABLET (FP) PO SCH (22:09)
[2020-04-11] MEDS: metFORMIN HCL 500 MG TABLET (FP) PO SCH (08:05)
[2020-04-11 09:25] VITALS: BP 115/66; PULSE 75; TEMP 97.3
[2020-04-11] MEDS ORDERED: MASKS NR ONE (09:28)
== END 2020-04-11 10:54 | disposition home or self-care (01) | DRG 774 ==
LOC: YASAS 11:08 → Y3N 11:55
PROVIDERS: ADMIT Allergy & Immunology; ATTEND Allergy & Immunology
PROC: HZ2ZZZZ Detoxification Services for Substance Abuse Treatment (ICD-10-PCS; principal; 2020-04-04)
DX: F10.230 Alcohol dependence with withdrawal, uncomplicated (principal); F14.20 Cocaine dependence, uncomplicated; F12.20 Cannabis dependence, uncomplicated; F10.282 Alcohol dependence with alcohol-induced sleep disorder; F10.24 Alcohol dependence with alcohol-induced mood disorder; E11.9 Type 2 diabetes mellitus without complications; Z79.84 Long term (current) use of oral hypoglycemic drugs; G47.00 Insomnia, unspecified; I10 Essential (primary) hypertension; J45.909 Unspecified asthma, uncomplicated; B18.2 Chronic viral hepatitis C; H54.61 Unqualified visual loss, right eye, normal vision left eye; M54.5 Low back pain; G89.29 Other chronic pain; N40.0 Benign prostatic hyperplasia without lower urinary tract symptoms; Z86.19 Personal history of other infectious and parasitic diseases; Z98.890 Other specified postprocedural states; Z98.49 Cataract extraction status, unspecified eye
CPT/HCPCS: 36415; 80053; 82962; 85027; 86593; 86780; C9803; U0003